=== PATIENT | female | born 1995 | race Caucasian/White ===

== ENCOUNTER 2017-12-01 12:25 | Emergency (ER) | payer OTHER ==
[2017-12-01] MEDS: MAGIC MOUTHWASH SUSPENSION BTL SS (13:46)
== END 2017-12-01 13:52 | disposition home or self-care (01) ==
LOC: M ED 12:25
DX: O98.511 Other viral diseases complicating pregnancy, first trimester (principal); J02.8 Acute pharyngitis due to other specified organisms; Z3A.01 Less than 8 weeks gestation of pregnancy
CPT/HCPCS: 87880

== ENCOUNTER 2018-02-27 20:23 | Emergency (ER) | payer OTHER | END 2018-02-27 21:44 | disposition home or self-care (01) | LOC: M ED 20:23 | DX: O99.511 Diseases of the respiratory system complicating pregnancy, first trimester (principal); J02.9 Acute pharyngitis, unspecified; J45.909 Unspecified asthma, uncomplicated; O99.341 Other mental disorders complicating pregnancy, first trimester; F41.9 Anxiety disorder, unspecified; Z3A.08 8 weeks gestation of pregnancy | CPT/HCPCS: 87880 ==

== ENCOUNTER 2018-02-28 21:12 | Emergency (ER) | payer OTHER | END 2018-02-28 23:47 | disposition home or self-care (01) | LOC: M ED 21:12 | DX: O99.512 Diseases of the respiratory system complicating pregnancy, second trimester (principal); O99.612 Diseases of the digestive system complicating pregnancy, second trimester; Z79.899 Other long term (current) drug therapy | CPT/HCPCS: 99283 ==

== ENCOUNTER 2018-04-22 22:21 | Outpatient (CLI) | payer OTHER ==
[2018-04-22] MEDS: diphenhydrAMINE 25 MG CAP PO (23:57)
[2018-04-22] MEDS: PROCHLORPERAZINE 5 MG TAB (S0183) PO (23:57)
== END 2018-04-23 | disposition home or self-care (01) ==
LOC: M LDO 22:21
DX: O99.89 Other specified diseases and conditions complicating pregnancy, childbirth and the puerperium (principal); R51 Headache; Z3A.26 26 weeks gestation of pregnancy
CPT/HCPCS: 59025

== ENCOUNTER 2018-06-15 22:25 | Outpatient (CLI) | payer OTHER | END 2018-06-15 23:35 | disposition home or self-care (01) | LOC: M LDO 22:25 | DX: O26.893 Other specified pregnancy related conditions, third trimester (principal); R10.30 Lower abdominal pain, unspecified; M54.5 Low back pain; O47.03 False labor before 37 completed weeks of gestation, third trimester; Z3A.34 34 weeks gestation of pregnancy | CPT/HCPCS: 59025 ==

== ENCOUNTER 2018-07-24 02:10 | Inpatient (IN) | payer OTHER ==
[2018-07-24 10:50] LABS: HEMATOCRIT 38.6 % (36.0-47.0); HEMOGLOBIN 12.4 g/dl (12.0-15.5); MEAN CORPUSCULAR HEMOGLOBIN 26.7 pg (27.0-33.0); MEAN CORPUSCULAR HGB CONC 32.1 g/dl (32.0-36.5); PLATELET COUNT, AUTOMATED 223 10^3/uL (150-450); RED BLOOD COUNT 4.65 10^6/uL (4.00-5.40); RED CELL DISTRIBUTION WIDTH 13.8 % (11.5-14.5); WHITE BLOOD COUNT 15.7 10^3/uL (4.0-10.0)
[2018-07-24] MEDS: LACTATED RINGER'S 1000 ML IV (11:53)
[2018-07-24] MEDS ORDERED: FENTANYL 2MCG/ML ROPIVACAINE 0.2% IN 0.9% NACL 100ML IVBAG As Ordered (12:09)
[2018-07-24] MEDS: LR 1,000 ML IV ×2 (12:57→21:37)
[2018-07-24] MEDS: FENTANYL/ROPIVACAINE/NACL BAG 100 ML EPIDURAL ×2 (13:00→23:00)
[2018-07-24] MEDS ORDERED: LACTATED RINGER'S 1000 ML IV (13:00)
[2018-07-24] MEDS ORDERED: REFRIGERATOR IV KEYS XX (13:00)
[2018-07-24] MEDS ORDERED: EPIDURAL COMMENT XX (13:00)
[2018-07-24] MEDS ORDERED: ePHEDrine SULFATE 25 MG/5 ML(5MG/ML) SYRINGE IV (13:00)
[2018-07-24] MEDS ORDERED: diphenhydrAMINE INJ 50MG/ML VIAL (J1200) IV (13:00)
[2018-07-24] MEDS ORDERED: NALOXONE INJ 0.4 MG/1 ML VIAL (J2310) IV (13:00)
[2018-07-24] MEDS ORDERED: ONDANSETRON 4MG/2ML VIAL (J2405) IV (13:00)
[2018-07-24] MEDS ORDERED: EPIDURAL/PCA KEYS XX (13:00)
[2018-07-24] MEDS: CALCIUM CARBONATE 500 MG CHEW U/D PO (14:32)
[2018-07-24] MEDS: ACETAMINOPHEN TAB 650MG DOSE (2X325MG) PO (18:57)
[2018-07-24] MEDS ORDERED: OXYTOCIN 30 UNITS IN 0.9% NaCl 500ML IV BAG (J2590) As Ordered (19:31)
[2018-07-24] MEDS ORDERED: DOCUSATE SODIUM 100 MG CAP PO (20:45)
[2018-07-24] MEDS: OXYTOCIN DRIP 30 UNITS in APPROPRIATE DILUENT 1 EA IV (21:36)
[2018-07-24] MEDS: IBUPROFEN 800 MG TAB PO (21:38)
[2018-07-25] MEDS: LR 1,000 ML IV (02:07)
[2018-07-25] MEDS: ACETAMINOPHEN 500 MG TAB PO ×3 (03:08→19:44)
[2018-07-25] MEDS: FENTANYL/ROPIVACAINE/NACL BAG 100 ML EPIDURAL (07:03)
[2018-07-25] MEDS: IBUPROFEN 800 MG TAB PO ×2 (07:46→16:33)
[2018-07-25] MEDS: PRENATAL VITAMINS CHEWABLE TABLET PO (07:46)
[2018-07-25] MEDS: MEASLES,MUMPS,RUBELLA VACCINE INJ (MMR-II) (90707) SC (15:07)
[2018-07-25] MEDS: RHOGAM 300 MCG (1500 IU) INJ (J2790) IM (15:07)
[2018-07-25] MEDS: DIBUCAINE 1% OINTMENT 30GM TOP (19:44)
[2018-07-26] MEDS: IBUPROFEN 800 MG TAB PO (04:48)
[2018-07-26] MEDS: MEASLES,MUMPS,RUBELLA VACCINE INJ (MMR-II) (90707) SC (07:19)
[2018-07-26] MEDS: RHOGAM 300 MCG (1500 IU) INJ (J2790) IM (07:19)
[2018-07-26] MEDS: PRENATAL VITAMINS CHEWABLE TABLET PO (08:30)
[2018-07-26] MEDS: ACETAMINOPHEN 500 MG TAB PO (08:34)
== END 2018-07-26 11:58 | disposition home or self-care (01) | DRG 807 ==
LOC: M LDO 02:10 → M LDI 09:45 → M OBS 23:18
PROVIDERS: Obstetrics & Gynecology
PROC: 10E0XZZ Delivery of Products of Conception, External Approach (ICD-10-PCS; principal; 2018-07-24)
PROC: 10D17Z9 Manual Extraction of Products of Conception, Retained, Via Natural or Artificial Opening (ICD-10-PCS; 2018-07-24)
PROC: 0HQ9XZZ Repair Perineum Skin, External Approach (ICD-10-PCS; 2018-07-24)
DX: O32.6XX0 Maternal care for compound presentation, not applicable or unspecified (principal); Z37.0 Single live birth; Z3A.39 39 weeks gestation of pregnancy; O70.0 First degree perineal laceration during delivery; O73.1 Retained portions of placenta and membranes, without hemorrhage